=== PATIENT | male | born 1965 | race Caucasian/White ===

== ENCOUNTER 2018-07-13 13:21 | Emergency (ER) | payer OTHER ==
[2018-07-13] MEDS ORDERED: Diphtheria,Pertussis(Acell),Tetanus Vaccine 0.5 ML SDV IM ONE (13:47)
[2018-07-13] MEDS ORDERED: Bacitracin/Neomycin/Polymyxin B Oint 0.9 GM U/D Packet TOP ONE (14:04)
--- NOTE | 2018-07-13 14:08 | EDM.PDOC ---
ED HPI GENERAL MEDICAL PROBLEM - General Chief Complaint: Laceration Stated Complaint: hit head on piece of iron Time Seen by Provider: 07/13/18 13:43 Source of Information: Reports: Patient History Limitations: Reports: No Limitations - History of Present Illness INITIAL COMMENTS - FREE TEXT/NARRATIVE: Patient comes to ER with laceration of right scalp. Walked into a metal edge which caused the injury. No LOC. No other complaints. - Related Data Allergies Allergy/AdvReac Type Severity Reaction Status Date / Time No Known Allergies Allergy Verified 07/13/18 13:23 Home Meds: Home Meds . [No Known Home Meds] 07/13/18 [History] Past Medical History - Past Health History Medical/Surgical History: Denies Medical/Surgical History (Denies significant health issues) ED ROS GENERAL - Review of Systems Review Of Systems: ROS reveals no pertinent complaints other than HPI. ED EXAM, SKIN/RASH Exam: See Below Exam Limited By: No Limitations General Appearance: Alert, WD/WN, No Apparent Distress Eye Exam: Bilateral Eye: EOMI, PERRL Ears: Normal External Exam Nose: Normal Inspection Throat/Mouth: Normal Lips, Normal Voice, No Airway Compromise Head: Other (right scalp laceration) Neck: Supple Respiratory/Chest: No Respiratory Distress Neurological: Alert, Oriented, Normal Cognition, Normal Gait, No Motor/Sensory Deficits Psychiatric: Normal Affect, Normal Mood Skin: Warm, Dry, Wound/Incision Location, Skin: Head ED SKIN PROCEDURES - Laceration/Wound Repair Right Head Lac/Wound length In cm: 6.0 Appearance: Subcutaneous, Linear, Clean Skin Prep: Chlorhexidine (Hibiciens) Exploration/Debridement/Repair: Wound Explored, In a Bloodless Field, Explored to Base, No Foreign Material Found Closed with: Melchor # of Sutures: 11 Drain Placement: No Tetanus Status Addressed: Yes Complications: No Course - Orders/Labs/Meds Orders: Active Orders 24 hr Category Date Time Status Vaccines to be Administered [RC] PER UNIT ROUTINE Care 07/13/18 13:48 Active Meds: Medications Discontinued Medications Generic Name Dose Route Start Last Admin Trade Name Freq PRN Reason Stop Dose Admin Diphtheria/Tetanus/Acell Pertussis 0.5 ml 07/13/18 13:47 07/13/18 14:16 Adacel IM 07/13/18 13:48 0.5 ml .ONCE ONE Administration Neomycin/Polymyxin/Bacitracin 1 each 07/13/18 14:04 07/13/18 14:17 Triple Antibiotic Oint TOP 07/13/18 14:05 1 each ONETIME ONE Administration - Re-Assessments/Exams Free Text/Narrative Re-Assessment/Exam: 07/13/18 14:05 Laceration cleansed, repaired. Wound care reviewed. Tetanus updated. Melchor out in 7-9 days. Departure - Departure Time of Disposition: 14:28 Disposition: Home, Self-Care 01 Condition: Good Clinical Impression: Scalp laceration Qualifiers: Encounter type: initial encounter Qualified Code(s): S01.01XA - Laceration without foreign body of scalp, initial encounter - Discharge Information *PRESCRIPTION DRUG MONITORING PROGRAM REVIEWED*: Not Applicable *COPY OF PRESCRIPTION DRUG MONITORING REPORT IN PATIENT DEBRA: Not Applicable Instructions: Stitches, Melchor, or Adhesive Wound Closure, [id number] Forms: ED Department Discharge Additional Instructions: Wound care as discussed. Follow up at clinic to have melchor removed next or Wednesday. Follow up sooner if you have any problems, such as signs of infection. - My Orders Last 24 Hours: My Active Orders 07/13/18 13:48 Vaccines to be Administered [RC] PER UNIT ROUTINE - Assessment/Plan Last 24 Hours: My Active Orders 07/13/18 13:48 Vaccines to be Administered [RC] PER UNIT ROUTINE
== END 2018-07-13 15:19 | disposition home or self-care (01) ==
LOC: LL.ED 13:21
DX: S01.01XA Laceration without foreign body of scalp, initial encounter (principal); W22.8XXA Striking against or struck by other objects, initial encounter; Z23 Encounter for immunization
CPT/HCPCS: 12002; 90471; 90715; 99283